=== PATIENT | female | born 1970 | race African-American/Black ===

== ENCOUNTER → 2016-03-14 | Outpatient (CLI) | payer OTHER ==
[2016-03-14 14:04] LABS: BASO % 0 % (0-3); EOS % 2 % (0-3); HEMATOCRIT 41.3 % (36.0-47.0); HEMOGLOBIN 13.4 g/dL (12.0-15.5); LYMPH # 1.9 x10^3/uL (1.0-4.8); LYMPH % 32 % (24-48); MEAN CORPUSCULAR HEMOGLOBIN 30 pg (25-35); MEAN CORPUSCULAR HGB CONC 32 g/dL (31-37); MEAN CORPUSCULAR VOLUME 91 fL (79-100); MONO % 7 % (0-9); NEUT % 58 % (31-73); PLATELET COUNT 235 x10^3/uL (140-400); RED BLOOD COUNT 4.54 x10^6/uL (3.50-5.40); RED CELL DISTRIBUTION WIDTH 13.2 % (11.5-14.5); WHITE BLOOD COUNT 5.9 x10^3/uL (4.0-11.0)
[2016-03-14 14:13] LABS: CALCIUM 8.7 mg/dL (8.5-10.1); CREATININE 0.8 mg/dL (0.6-1.0); GFR 93.9; POTASSIUM 3.8 mmol/L (3.5-5.1)
--- NOTE | 2016-03-14 14:50 | RAD ---
CHEST PA LATERAL Technique: PA and lateral views of the chest were obtained. Clinical History: Preop for hysterectomy. Comparison: 09/24/2010. Findings: The heart and pulmonary vasculature appear within normal limits. The lungs are clear. The pleural margins are clear. Impression: No acute chest process is seen.
== END | disposition home or self-care (01) ==
LOC: SURGPAT 13:31
PROVIDERS: ATTEND Obstetrics & Gynecology
DX: Z01.812 Encounter for preprocedural laboratory examination (principal)
CPT/HCPCS: 36415; 71020; 80048; 85027

== ENCOUNTER 2016-03-26 05:51 | Inpatient (IN) | payer OTHER ==
[2016-03-26] VITALS (8 sets, daily range): BP systolic 134–146; BP diastolic 70–97
[~2016-03-26] VITALS: Ht 154.9 cm; Wt 74.4 kg
[2016-03-26] MEDS ORDERED: CEFAZOLIN 1GM IVPB FOR OMNI 50 ML IV ONE (06:00)
[2016-03-26] MEDS ORDERED: FLUT9.9S NS (06:32)
[2016-03-26] MEDS ORDERED: ESCI10TA PO (06:32)
[2016-03-26] MEDS ORDERED: PROCHLORPERAZINE 10 MG/2 ML VIAL. IV PRN (07:00)
[2016-03-26] MEDS ORDERED: FENTANYL PF 100 MCG/2 ML VIAL. IV PRN (07:00)
[2016-03-26] MEDS ORDERED: ONDANSETRON PF 4 MG/2 ML VIAL. IV PRN (07:00)
[2016-03-26] MEDS ORDERED: LIDOCAINE 1% 1 ML SYRINGE. ID PRN (07:00)
[2016-03-26] MEDS ORDERED: IV RINGERS,LACTATED 1000ML 1,000 ML IV SCH (07:00)
[2016-03-26] MEDS ORDERED: LIDOCAINE 2% 100 MG/5 ML DISP.SYRIN. ONE (07:14)
[2016-03-26] MEDS ORDERED: PROPOFOL 20 ML IV ONE (07:14)
[2016-03-26] MEDS ORDERED: ROCURONIUM 50 MG/5 ML VIAL. ONE (07:14)
[2016-03-26] MEDS ORDERED: KETOROLAC 30 MG/ML SYRINGE FOR OR. INJ ONE (07:14)
[2016-03-26] MEDS ORDERED: ONDANSETRON PF 4 MG/2 ML VIAL. ONE (07:14)
[2016-03-26] MEDS ORDERED: DEXAMETHASONE SOD PHOS 20 MG/5 ML VIAL. ONE (07:14)
[2016-03-26] MEDS ORDERED: FENTANYL PF 250 MCG/5 ML VIAL. ONE (07:15)
[2016-03-26] MEDS ORDERED: BUPIVACAINE-EPI 0.5%-1:200000 50 ML VIAL. ONE (07:15)
[2016-03-26] MEDS ORDERED: VASOPRESSIN 20 UNIT/ML VIAL. ONE (07:15)
[2016-03-26] MEDS ORDERED: PHENYLEPHRINE in 0.9% NACL PF 1 MG/10 ML DISP.SYRIN. IV ONE (07:43)
[2016-03-26] MEDS ORDERED: EPHEDRINE PF IN SALINE 50 MG/5 ML DISP.SYRIN. IV ONE (08:02)
[2016-03-26] MEDS ORDERED: NEOSTIGMINE METHYLSULFATE 5 MG/5 ML SYRINGE. ONE (08:29)
[2016-03-26] MEDS ORDERED: GLYCOPYRROLATE 1 MG/5 ML VIAL. ONE (08:30)
[2016-03-26] MEDS ORDERED: MORPHINE SULFATE 10 MG/ML VIAL. ONE (08:32)
[2016-03-26] MEDS ORDERED: FAMOTIDINE 20 MG/2 ML VIAL ONE (08:41)
[2016-03-26] MEDS ORDERED: DESFLURANE 61 TO 120 MINUTES IH ONE (08:52)
--- NOTE | 2016-03-26 09:34 | PDOC ---
BRIEF OPERATIVE NOTE Date: Mar 26, 2016 Pre-Op Diagnosis pelvic pain, history of anemia, fibroid uterus Post-Op Diagnosis same Procedure Performed [facility] Surgeon Melissa Industrial Controls Technician Mike Anesthesiologist Walt Anesthesia Type: General Blood Loss 250cc IV Fluid see anesthesia Urine Output 130cc Specimens Obtained uterus, tubes, ovaries Findings enlarged fibroid uterus, bilateral tubal cysts Complications none Additional Remarks [id number] STEFFANY DUNAWAY MD Mar 26, 2016 09:34
[2016-03-26 09:41] LABS: NEG OBC UR NEG; POS OBC UR POS
[2016-03-26] MEDS: FENTANYL PF 100 MCG/2 ML VIAL. IV PRN ×4 (09:45→10:28)
[2016-03-26] MEDS: MORPHINE SULFATE 2 MG/ML DISP.SYRIN. IV PRN ×2 (09:50→10:05)
[2016-03-26] MEDS ORDERED: NALOXONE 0.4 MG/ML VIAL. IV PRN (10:00)
[2016-03-26] MEDS ORDERED: MAG HYDROX/AL HYDROX/SIMETH 30 ML ORAL.SUSP PO PRN (10:00)
[2016-03-26] MEDS ORDERED: DIPHENHYDRAMINE 50 MG/ML VIAL IV PRN (10:00)
[2016-03-26] MEDS ORDERED: ZOLPIDEM 5 MG TABLET. PO PRN (10:00)
[2016-03-26] MEDS ORDERED: SIMETHICONE 80 MG TAB.CHEW PO PRN (10:00)
[2016-03-26] MEDS ORDERED: ESTRADIOL WEEKLY 0.1 MG PATCH. TD ONE (10:00)
[2016-03-26] MEDS ORDERED: 0.9 % SODIUM CHLORIDE 10 ML DISP.SYRIN. IV PRN (10:00)
[2016-03-26] MEDS ORDERED: CALCIUM CARBONATE 500 MG TAB.CHEW PO PRN (10:00)
[2016-03-26] MEDS ORDERED: DIPHENHYDRAMINE HCL 25 MG CAPSULE PO PRN (10:00)
[2016-03-26] MEDS ORDERED: HYDROMORPHONE 2 MG/ML VIAL. IV PRN (10:00)
[2016-03-26] MEDS ORDERED: BISACODYL 10 MG SUPP.RECT PR PRN (10:00)
[2016-03-26] MEDS ORDERED: LACTULOSE 20 GM/30 ML SOLUTION. PO PRN (10:00)
[2016-03-26] MEDS ORDERED: PROMETHAZINE 25 MG SUPP.RECT. PR PRN (10:00)
[2016-03-26] MEDS: HYDROMORPHONE 2 MG/ML VIAL. IV PRN ×4 (10:01→10:33)
[2016-03-26] MEDS ORDERED: FLUTICASONE 50MCG/NASAL SPRAY 16GM BOTTLE. NS SCH ×2 (13:00→13:01)
[2016-03-26] MEDS: KETOROLAC TROMETHAMINE 30 MG/ML SYRINGE. IV PRN ×2 (13:47→20:42)
[2016-03-26] MEDS: HYDROMORPHONE 2 MG/ML VIAL. IM PRN (17:06)
--- NOTE | 2016-03-26 20:26 | OP ---
DATE OF SURGERY: 03/26/2016 PREOPERATIVE DIAGNOSES: Pelvic pain. History of anemia from period bleeding from menorrhagia and enlarged fibroid uterus. POSTOPERATIVE DIAGNOSES: Pelvic pain. History of anemia from period bleeding from menorrhagia and enlarged fibroid uterus. PROCEDURE: [facility]. SURGEON: Lisset Dunaway M.D. and Dr. Mckeon. ANESTHESIA: Dr. Godoy. ANESTHESIA TYPE: General. ESTIMATED BLOOD LOSS: 250 mL. INTRAVENOUS FLUIDS: Please see the anesthesia report. URINE OUTPUT: 130 mL. SPECIMENS: Uterus, tubes and bilateral ovaries. FINDINGS: Enlarged fibroid uterus and there were some little paratubal cysts on both sides. COMPLICATIONS: None. DESCRIPTION OF PROCEDURE: After informed consent was obtained, the patient was taken to the operating room and given a smooth induction of anesthesia without complications. Her abdomen was prepped and draped in the usual sterile fashion. A Hines catheter had been placed and she did receive a gram of Ancef prior to the procedure. A Pfannenstiel incision was made 2 fingerbreadths above the pubic bone with a knife. This incision was carried down to the subcutaneous tissue using cautery. We then incised the fascia bilaterally with Santa scissors. Any bleeders were cauterized on the way in. We elevated the fascia off the muscles then elevated them using sharp dissection with Santa scissors both superiorly and inferiorly, then we entered the peritoneum bluntly. The enlarged uterus was encountered. We brought it out through the pelvic incision. It was very enlarged with multiple large fibroids and it was very vascular with very large blood vessels. At this point, we were able to grasp the round ligament and tied off with two interrupted sutures. We then cut in the middle and the round ligament. This was carried out on both sides. We then created a bladder flap anteriorly using sharp dissection with the Bovie. The bladder was then retracted inferiorly using blunt dissection with a Ray-Lise. We then created a window in the medial leaf of the broad ligament and came just beneath the tube and ovary to clamp the infundibulopelvic ligament. The ureter was noted to be way out of the field. We clamped this ligament and then the tube and ovary from the sidewall. This was done on both sides. This pedicle was tied off using 2 Eligio transfixion sutures. We then proceeded to clamp, cut and ligate the uterine vessels at the level of the cervix. This was done with 2 Eligio transfixion sutures and this was done on both sides. We then proceeded to clamp, cut and ligate the sides of the uterus again using Eligio transfixion sutures. Once we got to the cervicovaginal junction, we were able to come across with a curved Eligio to create our angle stitch. Once the vagina was entered, we came around the top of the cervix with the Mariana scissors. We then removed the uterus, tubes, ovaries and cervix from the field. This was very enlarged and we took several pictures for the patient. We then closed the vaginal cuff firstly creating an angle stitch at our angles and then closed the cuff in the midline using interrupted [id number] sutures. There was an area anterior to the cuff that was bleeding and after a couple of attempts of cauterizing this, we tied it off with interrupted suture of 3-0 Vicryl. We then irrigated the pelvis. The pelvis was mostly dry. There were a few little areas that were oozing, we used Bertrand on this and everything was noted to be dry after the Bertrand was placed. Once the pelvis was irrigated and everything was noted to be dry, we took a couple of packs out of the abdomen to allow the bowel to fall back into its natural position. We also allowed the omentum to fall back into its natural position. We then closed the fascia with a running nonlocking suture of 0-Vicryl and irrigated the subcuticular tissue. No bleeding was noted. We then closed the skin with yaron. The patient tolerated the procedure well. There were no complications. LISSET DUNAWAY MD DR: PRERNA/stacia JOB#: [id number] / [id number] MELANIE
[2016-03-26] MEDS: OXYCODONE/APAP 5/325 TABLET. PO PRN (23:59)
[2016-03-27] MEDS: HYDROMORPHONE 2 MG/ML VIAL. IM PRN (01:36)
[2016-03-27 02:45] VITALS: BP 138/79
[2016-03-27 06:06] LABS: CALCIUM 8.4 mg/dL (8.5-10.1); CREATININE 0.8 mg/dL (0.6-1.0); GFR 93.9; POTASSIUM 4.1 mmol/L (3.5-5.1)
[2016-03-27 06:27] VITALS: BP 117/67
[2016-03-27] MEDS: ESCITALOPRAM 10 MG TABLET. PO SCH ×2 (07:26→09:00)
[2016-03-27] MEDS: HYDROCODONE/APAP 5/325MG TABLET. PO PRN ×2 (07:26→13:44)
--- NOTE | 2016-03-27 10:15 | PDOC ---
SURGICAL PROGRESS NOTE Subjective Doing well. Minimal pain. Ambulated last night. Took liquids for breakfast. Has voided without yañez Vital Signs Vital Signs Date Time Temp Pulse Resp B/P Pulse Ox O2 Delivery O2 Flow Rate FiO2 03/27/16 09:26 Room Air 03/27/16 06:27 97.7 87 18 117/67 97.7 03/27/16 02:45 97 03/26/16 15:10 2.0 I&O Intake and Output 03/27/16 07:00 Intake Total 3805 ml Output Total 1925 ml Balance 1880 ml Intake Oral 500 ml IV Total 2000 ml Other 1305 ml Output Urine Total 1925 ml # Voids 3 PATIENT HAS A YAÑEZ: No General: Alert, Oriented X3, Cooperative, No acute distress HEENT: Mucous membr. moist/pink Abdomen: Normal bowel sounds, Soft, No tenderness, No hepatosplenomegaly, No masses, Other (incision c/d/i) Extremities: No clubbing, No cyanosis, No edema, Normal pulses, No tenderness/ swelling Labs Laboratory Tests Test 03/26/16 06:15 03/27/16 05:23 Urine Test Negative (NEG) Hematocrit 34.8% (36.0-47.0) Sodium Level 137mmol/L (136-145) Potassium Level 4.1mmol/L (3.5-5.1) Chloride Level 106mmol/L (98-107) Carbon Dioxide Level 26mmol/L (21-32) Anion Gap 5 (6-14) Blood Urea Nitrogen 6mg/dL (7-20) Creatinine 0.8mg/dL (0.6-1.0) Estimated GFR (Cockcroft-Gault) 93.9 Glucose Level 103mg/dL (70-99) Calcium Level 8.4mg/dL (8.5-10.1) Laboratory Tests Test 03/27/16 05:23 Hematocrit 34.8% (36.0-47.0) Sodium Level 137mmol/L (136-145) Potassium Level 4.1mmol/L (3.5-5.1) Chloride Level 106mmol/L (98-107) Carbon Dioxide Level 26mmol/L (21-32) Anion Gap 5 (6-14) Blood Urea Nitrogen 6mg/dL (7-20) Creatinine 0.8mg/dL (0.6-1.0) Estimated GFR (Cockcroft-Gault) 93.9 Glucose Level 103mg/dL (70-99) Calcium Level 8.4mg/dL (8.5-10.1) I have reviewed the following labs, vitals Problem List POD #1 from [facility] and [facility]. Doing well. Continue to advance diet as tolerated. Possible discharge tomorrow Problems Medical Problems: (1) Leiomyoma of uterus Status: Acute (2) Pelvic pain Status: Acute Problems: STEFFANY DUNAWAY MD Mar 27, 2016 10:15
--- NOTE | 2016-03-27 10:16 | DISCH ---
DISCHARGE INSTRUCTIONS Condition on Discharge Condition on Discharge: Stable Activity After Discharge Activity Instructions for Disc: Activity as tolerated, Avoid exertion, Progressive ambulation Lifting Instructions after Dis: No heavy lifting, Do not lift >10 pounds Exercise Instruction after Dis: Progress as tolerated Driving Instructions after Dis: No driving for 2 weeks Weight Bearing Status after Di: Full weight bearing Diet after Discharge Diet after Discharge: Regular Wound Incision Care Wound/Incision Care: Ice to area for comfort, May get incision wet Contacting the DRMarcio after DC Call your doctor for: Fever greater than 100 Follow-Up Follow up with: Dr. Dunaway in 1 week in office STEFFANY DUNAWAY MD Mar 27, 2016 10:16
[2016-03-27] MEDS: IBUPROFEN 800 MG TABLET. PO PRN ×2 (11:02→18:03)
[2016-03-27 15:18] VITALS: BP 124/74
[2016-03-27 15:19] VITALS: BP 124/74
[2016-03-27] MEDS: OXYCODONE/APAP 5/325 TABLET. PO PRN (21:59)
[2016-03-27 23:00] VITALS: BP 133/90
[2016-03-28] MEDS: OXYCODONE/APAP 5/325 TABLET. PO PRN ×2 (04:11→10:25)
[2016-03-28 06:21] VITALS: BP 125/75
--- NOTE | 2016-03-28 08:43 | PDOC ---
SURGICAL PROGRESS NOTE Subjective Doing well. Now tolerating regular diet, ambulating and taking oral pain meds. Is somewhat tearful when thinks about not being able to have children anymore. Had some hot flashes and night sweats last night. Vital Signs Vital Signs Date Time Temp Pulse Resp B/P Pulse Ox O2 Delivery O2 Flow Rate FiO2 03/28/16 06:21 98.0 80 16 125/75 98.0 03/27/16 19:51 Room Air 03/27/16 15:19 97 2.0 PATIENT HAS A BOWSER: No General: Alert, Oriented X3, Cooperative, No acute distress HEENT: Mucous membr. moist/pink Abdomen: Normal bowel sounds, Soft, No tenderness, No hepatosplenomegaly, No masses, Other (Incision c/d/i) Extremities: No clubbing, No cyanosis, No edema, Normal pulses, No tenderness/ swelling Labs Laboratory Tests Test 03/27/16 05:23 Hematocrit 34.8% (36.0-47.0) Sodium Level 137mmol/L (136-145) Potassium Level 4.1mmol/L (3.5-5.1) Chloride Level 106mmol/L (98-107) Carbon Dioxide Level 26mmol/L (21-32) Anion Gap 5 (6-14) Blood Urea Nitrogen 6mg/dL (7-20) Creatinine 0.8mg/dL (0.6-1.0) Estimated GFR (Cockcroft-Gault) 93.9 Glucose Level 103mg/dL (70-99) Calcium Level 8.4mg/dL (8.5-10.1) I have reviewed the following vitals, labs Problem List POD # 2 from [facility]. Hormone imbalance: discussed possible need to increase hormones. Pt would like to stay on this dose for now and re-evaluate on Saturday in office. Plan is for D/C today. Problems Medical Problems: (1) Leiomyoma of uterus Status: Acute (2) Pelvic pain Status: Acute Problems: STEFFANY DUNAWAY MD Mar 28, 2016 08:42
--- NOTE | 2016-03-28 08:47 | PDOC3 ---
Discharge Summary Visit Information Date of Admission: Mar 26, 2016 Date of Discharge: Mar 28, 2016 Admitting Diagnosis: uterine fibroids, pelvic pain, history of anemia Final Diagnosis Problems Medical Problems: (1) Leiomyoma of uterus Status: Acute (2) Pelvic pain Status: Acute Brief Hospital Course Allergies Allergies Coded Allergies Type Severity Reaction Last Updated Verified No Known Drug Allergies 03/26/16 No Vital Signs Vital Signs Date Time Temp Pulse Resp B/P Pulse Ox O2 Delivery O2 Flow Rate FiO2 03/28/16 06:21 98.0 80 16 125/75 98.0 03/27/16 19:51 Room Air 03/27/16 15:19 97 2.0 Lab Results Laboratory Tests Test 03/27/16 05:23 Hematocrit 34.8% (36.0-47.0) Sodium Level 137mmol/L (136-145) Potassium Level 4.1mmol/L (3.5-5.1) Chloride Level 106mmol/L (98-107) Carbon Dioxide Level 26mmol/L (21-32) Anion Gap 5 (6-14) Blood Urea Nitrogen 6mg/dL (7-20) Creatinine 0.8mg/dL (0.6-1.0) Estimated GFR (Cockcroft-Gault) 93.9 Glucose Level 103mg/dL (70-99) Calcium Level 8.4mg/dL (8.5-10.1) Brief Hospital Course Ms. Trivedi is a 45 old F who presented with large uterine fibroids and pelvic pain. She had a history of anemia in the fall due to bleeding, but was not anemic on admission. She presented on Saturday for [facility]. She underwent the planned procedure without difficulty. She is now POD #2. She is ambulating and tolerating regular diet. She is taking her oral pain meds and doing well. She is clinically stable and wishes to go home. Her post op hct was 34.8. Discharge Information Condition at Discharge: Improved Follow Up: Weeks (Saturday in office) Disposition/Orders: D/C to Home Scheduled Escitalopram Oxalate (Escitalopram Oxalate) 1 TAB PO DAILY (Reported) Fluticasone Propionate (Flonase Allergy Relief) 2 SPRAYS NS DAILY (Reported) Patient Instructions Patient Instructions No lifting over 10#; nothing in the vagina; no driving while on narcotics. May shower and may get incision wet. F/U Saturday in office STEFFANY DUNAWAY MD Mar 28, 2016 08:47
[2016-03-28] MEDS ORDERED: PNEUMOC CONJ VACC 23-VALENT 0.5 ML VIAL. VAX IM ONE (09:00)
[2016-03-28 10:53] VITALS: BP 126/81
--- NOTE | 2016-03-29 16:33 | PATHOLOGY ---
PATHOLOGY REPORT * * * * * * * * FINAL DIAGNOSIS: Uterus and attached bilateral fallopian tubes and ovaries, total abdominal hysterectomy with bilateral salpingo-oophorectomy: - Leiomyomas, uterine corpus, serosal and intramural, multiple, the largest measuring 13.1 cm in greatest dimension (uterine weight 1,646 grams). - Focal mild chronic cervicitis with squamous metaplasia. - Secretory endometrium. - Cystic Walthard rests of fallopian tubes. - Cystic follicles of bilateral ovaries. - Regressing luteum of left ovary. COMMENT: There is no evidence of malignancy. (JPM:; d/t: 03/29/16) REPORT ELECTRONICALLY SIGNED BY: Jay Verdugo M.D. DATE/TIME: 03/29/2016 16:33 * * * * * * * * GROSS PATHOLOGY: The specimen is received in formalin labeled "Norma Trivedi, uterus with cervix and bilateral tubes and ovaries". Received is a 1646 g, 18.6 x 19.5 x 11.5 cm uterus with attached cervix and attached adnexa, weighing 9 and 12 g, left and right, respectively. The uterine serosa is light culver and smooth in appearance displaying two large serosal nodules measuring 9.1 x 8.5 x 5.1 and 13.1 x 10.5 x 7.9 cm, each of which display moderate to prominent vasculature. The 0.5 cm cervical os is surrounded by pale culver, smooth ectocervical mucosa. The uterus is oriented using the peritoneal reflection and the anterior paracervical margin is inked black. The specimen is opened laterally to reveal a pale culver, slightly corrugated endocervical canal measuring 5.5 cm in length. The endometrial cavity is triangular measuring 6.9 cm in length by 3.7 cm in width. The endometrium is pale culver to pink-culevr, glistening in appearance and measures 0.2 cm. Serial sectioning reveals a culver-pink, trabeculated myometrium measuring up to 7.0 cm in thickness displaying multiple intramural fibroids ranging in size from 0.8 to 5.0 cm, some of which display a slight amount of degeneration. The left adnexa consist of a fimbriated fallopian tube measuring 2.0 cm in length by 0.8 cm in diameter attached to a 3.8 x 2.0 x 1.5 cm ovary. The fallopian tube displays several paratubal cysts ranging in size from 0.1 to 0.4 cm and appears otherwise grossly unremarkable. Sectioning through the ovary reveals multiple cystic structures ranging in size from 0.3 to 0.5 cm filled with blood-tinged fluid, as well as corpora lutea ranging in size from 0.3 to 0.7 cm. The right adnexa consists of a fimbriated fallopian tube measuring 2.0 cm in length by 0.7 cm in diameter attached to a 3.7 x 2.5 x 0.9 cm ovary. The fallopian tube appears grossly unremarkable and sectioning through the ovary reveals multiple cystic structures ranging in size from 0.3 to 0.5 cm filled with blood-tinged fluid. The remainder of the ovary displays pale culver, normal ovarian stroma. The specimen is submitted representatively as follows: A1 12:00 cervix A2 6:00 cervix A3 senior human resources representative sections of serosal nodules A4 anterior endometrium A5 posterior endomyometrium A6 senior human resources representative sections of intramural fibroids A7 left adnexa A8 right adnexa. (CAA; 03/28/2016) INITIAL CPT CODE(S): A; 32144 Professional services performed by [employer] [place] [address] Technical services performed by [facility] at [address] [place] [address], [facility] [address], [place] [address]. SPECIMEN(S) RECEIVED: A.Uterus with cervix and bilateral tubes and ovaries CLINICAL HISTORY: Fibroids, menorrhagia, dysmenorrhea PATIENT: NORMA TRIVEDI /AGE: 809/27/1970 (Age: 45) PATIENT #: [id number] ALT CASE #: SPECIMEN COLLECTION DATE: 03/26/2016 SPECIMEN RECEIVED DATE: 03/26/2016 [facility] - [id number] [place] [address] - PHONE: [phone] * * * END OF REPORT * * *
== END 2016-03-28 10:30 | disposition home or self-care (01) | DRG 743 ==
LOC: OPSVCIP 05:51 → 3 NORTH 11:05
PROVIDERS: ADMIT Obstetrics & Gynecology; ATTEND Obstetrics & Gynecology
PROC: 0UTC0ZZ Resection of Cervix, Open Approach (ICD-10-PCS; 2016-03-26)
PROC: 0UT20ZZ Resection of Bilateral Ovaries, Open Approach (ICD-10-PCS; 2016-03-26)
PROC: 0UT70ZZ Resection of Bilateral Fallopian Tubes, Open Approach (ICD-10-PCS; 2016-03-26)
PROC: 0UT90ZZ Resection of Uterus, Open Approach (ICD-10-PCS; principal; 2016-03-26 07:30)
DX: D25.9 Leiomyoma of uterus, unspecified (principal); N95.1 Menopausal and female climacteric states; R61 Generalized hyperhidrosis; Z79.899 Other long term (current) drug therapy
CPT/HCPCS: 36415; 80048; 81025; 85014; 86850; 86900; 86901; 88307; 90732; J0690; J1100; J1170; J1885; J2270; J2370; J2405; J2704; J2710; J3010; J3490; J7120; S0028